=== PATIENT | female | born 1940 | race Caucasian/White ===

== ENCOUNTER 2020-11-06 17:42 | Emergency (ER) | payer MEDICARE ==
[2020-11-06 18:04] VITALS: O2SAT 98
[2020-11-06 18:07] LABS: Absolute Neutrophil Ct (ANC) 6.57 (1.4-6.9); BASOPHIL % 0.3 % (0.0-0.4); Basophil (Absolute #) 0.03 (0-0.4); Eosinophil % 2.4 % (0.00-5.0); Eosinophil (Absolute #) 0.24 (0-0.5); Hematocrit 33.9 % (35-47); Hemoglobin 10.8 gm/dl (12.0-16.0); Lymphocyte (Absolute #) 2.25 (1.0-4.6); Lymphocytes % 22.8 % (24.0-44.0); Mean Cell Volume 97.4 fl (78-100); Mean Corpuscular Hgb Concent. 31.9 g/dl (32-36); Mean Platelet Volume 11.4 fl (7.5-11.0); Monocyte (Absolute #) 0.79 (0.0-1.3); Neutrophil % 66.5 % (36.0-66.0); Platelet Count 186 K/mm3 (150-450); Red Blood Count 3.48 M/mm3 (4.1-5.4); Red Cell Distribution Width 14.3 % (11.5-14.0); White Blood Count 9.9 K/mm3 (4.0-10.5)
--- NOTE | 2020-11-06 18:22 | ERPHSYRPT ---
- History of Present Illness Source: patient Exam Limitations: no limitations Patient Subjective Stated Complaint: tachycardia Triage Nursing Assessment: pt to ED c/o tachycardia and GUEVARA on Thursday night, sx have all since gone away. pt denies GUEVARA or any CP now. heart sounds clear, lungs clear and equal bilaterally. Physician History: 79 yo wf w tachycardia 2 days ago whivh has resolved. Pt has a h/o tachycardia for which she sees a radiology scheduler who placed her on a BB w improvement. Pt denies chest pain/dyspnea/cough/fever/N/V/D/melena/hematochezia. Timing/Duration: day(s) (2 days ago) Activities at Onset: rest Quality: other (Heart raqcing) Chest Pain Radiation: no radiation Severity of Pain-Max: none Severity of Pain-Current: none Modifying Factors: Improves With: nothing Nitro Today/Relief: no nitro taken today Aspirin Treatment Today: no aspirin today Associated Symptoms: No nausea, No vomiting, No abdominal pain, No shortness of breath, No heartburn, No diaphoresis, No cough, No chills, No chest pain, No fever, No headaches, No loss of appetite, No malaise, No rash, No syncope, No seizure Prior Chest Pain/Cardiac Workup: no prior chest pain Allergies/Adverse Reactions: levofloxacin [From Levaquin] Allergy (Severe, Verified 12/06/19 14:24) Swelling of Face Home Medications: Cetirizine HCl [Zyrtec] 10 mg PO DAILY 02/01/15 [History] Enalapril Maleate 5 mg [Vasotec 5 MG] 5 mg PO DAILY 02/01/15 [History] Escitalopram Oxalate 10 mg [Lexapro 10 MG] 5 mg PO DAILY 02/01/15 [History] Fluticasone Propionate [Flonase NASAL] 16 gm NS DAILY 02/01/15 [History] Hydrochlorothiazide 25 mg [hydroDIURIL 25 MG] 12.5 mg PO DAILY 02/01/15 [History] Montelukast Sodium [Singulair] 10 mg PO DAILY 02/01/15 [History] Metoprolol Succinate 25 mg PO DAILY 11/06/20 [History] Hx Tetanus, Diphtheria Vaccination/Date Given: No Hx Influenza Vaccination/Date Given: No Hx Pneumococcal Vaccination/Date Given: No Immunizations Up to Date: No Travel Risk - International Travel Have you traveled outside of the country in past 3 weeks: No - Coronavirus Screening Are you exhibiting any of the following symptoms?: No Close contact with a COVID-19 positive Pt in past 14-21 Days: No - Vaccine Status Have you recieved a Covid-19 vaccination: No - Review of Systems Constitutional: No Symptoms Eyes: No Symptoms Ears, Nose, & Throat: No Symptoms Respiratory: No Symptoms Cardiac: No Symptoms, Palpitations Abdominal/Gastrointestinal: No Symptoms Genitourinary Symptoms: No Symptoms Musculoskeletal: No Symptoms Skin: No Symptoms Neurological: No Symptoms Psychological: No Symptoms Endocrine: No Symptoms Hematologic/Lymphatic: No Symptoms Immunological/Allergic: No Symptoms - Past Medical History Pertinent Past Medical History: Yes Neurological History: No Pertinent History ENT History: Cataracts, Other Cardiac History: Arrhythmia, Hypertension GI Medical History: Diverticulitis, Polyps Psycho-Social History: Depression Other Medical History: tachycardia - Past Surgical History Past Surgical History: Yes Female Surgical History: Tubal Ligation Other Surgical History: COLONOSCOPY, POLYP REMOVAL - Social History Smoking Status: Never smoker Exposure to second hand smoke: No Drug Use: none Patient Lives Alone: No Significant Family History: no pertinent family hx - Nursing Vital Signs Nursing Vital Signs: Initial Vital Signs Temperature 98.7 F 11/06/20 17:47 Pulse Rate 66 11/06/20 17:47 Respiratory Rate 16 11/06/20 17:47 Blood Pressure 136/64 11/06/20 17:47 O2 Sat by Pulse Oximetry 98 11/06/20 17:47 Pain Scale Pain Intensity 0 - Physical Exam General Appearance: no apparent distress Eye Exam: PERRL/EOMI, eyes nml inspection Ears, Nose, Throat Exam: normal ENT inspection, TMs normal, pharynx normal, mo ist mucous membranes Neck Exam: normal inspection, non-tender, supple, No meningismus, No mass, No Brudzinski, No Kernig's Respiratory Exam: normal breath sounds, crackles/rales (Rales bases L>R) Cardiovascular Exam: regular rate/rhythm, murmur (2/6 FRANCES/PAC's on monitor) Gastrointestinal/Abdomen Exam: soft, normal bowel sounds, No tenderness Back Exam: normal inspection, normal range of motion Extremity Exam: normal inspection, normal range of motion, pelvis stable Neurologic Exam: alert, oriented x 3, cooperative, 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, normal mood/affect, nml cerebellar function, nml station & gait, sensation nml, No motor deficits, No sensory deficit Skin Exam: normal color, warm, dry Lymphatic Exam: No adenopathy SpO2 Interpretation: normal SpO2: 98 O2 Delivery: Room Air - Course Nursing assessment & vital signs reviewed: Yes EKG Interpreted by Me: RATE (NSR/PAC's/RBBB/Prolonged QTc/Non-specific ST changes/EKG #2 NSR/PAC's/RBBB/prolonged QTc) - Radiology Exams Chest X-ray Interpretation: Interpreted by me (NAD) Ordered Tests: Active Orders 24 hr Category Date Time Status EKG-ER Only STAT Care 11/06/20 17:52 Completed EKG-ER Only STAT Care 11/06/20 19:08 Completed CHEST 1 VIEW (PORTABLE) Stat Exams 11/06/20 17:53 Taken CBC W DIFF Stat Lab 11/06/20 18:00 Completed CMP Stat Lab 11/06/20 18:00 Completed MAGNESIUM Stat Lab 11/06/20 18:00 Completed PROTIME WITH INR Stat Lab 11/06/20 18:00 Completed PTT Stat Lab 11/06/20 18:00 Completed TROPONIN Q3H Lab 11/06/20 18:00 Completed Lab/Rad Data: Laboratory Result Diagrams 11/06/20 18:00 11/06/20 18:00 Laboratory Results 11/06/20 11/06/20 11/06/20 Range/Units 18:00 18:00 18:00 WBC (4.0-10.5) K/mm3 RBC (4.1-5.4) M/mm3 Hgb (12.0-16.0) gm/dl Hct (35-47) % MCV (78-100) fl MCH (26-32) pg MCHC (32-36) g/dl RDW (11.5-14.0) % Plt Count (150-450) K/mm3 MPV (7.5-11.0) fl Gran % (36.0-66.0) % Eos # (Auto) (0-0.5) Absolute Lymphs (auto) (1.0-4.6) Absolute Monos (auto) (0.0-1.3) Lymphocytes % (24.0-44.0) % Monocytes % (0.0-12.0) % Eosinophils % (0.00-5.0) % Basophils % (0.0-0.4) % Absolute Granulocytes (1.4-6.9) Basophils # (0-0.4) PT 11.6 (9.95-12.35) SECONDS INR 1.03 (0.8-3.0) APTT 27.9 (25.3-37.0) SECONDS Sodium 141 (137-145) mmol/L Potassium 4.2 (3.5-5.1) mmol/L Chloride 105 (98-107) mmol/L Carbon Dioxide 26 (22-30) mmol/L Anion Gap 14.5 (5-15) MEQ/L BUN 27 H (7-17) mg/dL Creatinine 1.21 H (0.52-1.04) mg/dL Estimated GFR 45.4 ML/MIN Glucose 134 H (74-106) mg/dL Calcium 9.4 (8.4-10.2) mg/dL Magnesium 1.8 (1.6-2.3) mg/dL Total Bilirubin 0.30 (0.2-1.3) mg/dL AST 31 (14-36) U/L ALT 17 (0-35) U/L Alkaline Phosphatase 47 (38-126) U/L Troponin I < 0.012 (0.000-0.034) ng/mL Serum Total Protein 7.2 (6.3-8.2) g/dL Albumin 4.1 (3.5-5.0) g/dL 11/06/20 Range/Units 18:00 WBC 9.9 (4.0-10.5) K/mm3 RBC 3.48 L (4.1-5.4) M/mm3 Hgb 10.8 L (12.0-16.0) gm/dl Hct 33.9 L (35-47) % MCV 97.4 (78-100) fl MCH 31.0 (26-32) pg MCHC 31.9 L (32-36) g/dl RDW 14.3 H (11.5-14.0) % Plt Count 186 (150-450) K/mm3 MPV 11.4 H (7.5-11.0) fl Gran % 66.5 H (36.0-66.0) % Eos # (Auto) 0.24 (0-0.5) Absolute Lymphs (auto) 2.25 (1.0-4.6) Absolute Monos (auto) 0.79 (0.0-1.3) Lymphocytes % 22.8 L (24.0-44.0) % Monocytes % 8.0 (0.0-12.0) % Eosinophils % 2.4 (0.00-5.0) % Basophils % 0.3 (0.0-0.4) % Absolute Granulocytes 6.57 (1.4-6.9) Basophils # 0.03 (0-0.4) PT (9.95-12.35) SECONDS INR (0.8-3.0) APTT (25.3-37.0) SECONDS Sodium (137-145) mmol/L Potassium (3.5-5.1) mmol/L Chloride (98-107) mmol/L Carbon Dioxide (22-30) mmol/L Anion Gap (5-15) MEQ/L BUN (7-17) mg/dL Creatinine (0.52-1.04) mg/dL Estimated GFR ML/MIN Glucose (74-106) mg/dL Calcium (8.4-10.2) mg/dL Magnesium (1.6-2.3) mg/dL Total Bilirubin (0.2-1.3) mg/dL AST (14-36) U/L ALT (0-35) U/L Alkaline Phosphatase (38-126) U/L Troponin I (0.000-0.034) ng/mL Serum Total Protein (6.3-8.2) g/dL Albumin (3.5-5.0) g/dL - Progress Air Movement: good Progress Note: 11/06/20 20:52 Pt w frequent PAC's wo any malignant arrythmias in ER. No chest pain or dyspnea in ER. Counseled pt/family regarding: lab results, diagnosis, need for follow-up, rad results - Departure Departure Disposition: Home Clinical Impression: Heart palpitations Condition: Stable Critical Care Time: No Referrals: SANDIE LINDSAY, [Primary Care Provider] - Instructions: Tachycardia (DC) Additional Instructions: Follow up with Dr. Candelario in 1-2 days Return to ER for elevated heart rate/Chest pain/Shortness of breath
[2020-11-06 18:35] LABS: INR 1.03 (0.8-3.0); PROTIME 11.6 SECONDS (9.95-12.35)
[2020-11-06 18:37] LABS: PTT 27.9 SECONDS (25.3-37.0)
[2020-11-06 18:40] LABS: ALBUMIN 4.1 g/dL (3.5-5.0); ANION GAP 14.5 MEQ/L (5-15); BILIRUBIN,TOTAL 0.3 mg/dL (0.2-1.3); Calcium 9.4 mg/dL (8.4-10.2); Creatinine 1 1.21 mg/dL (0.52-1.04); EST GLOMERULAR FILTRATION RATE 45.4 ML/MIN; MAGNESIUM 1.8 mg/dL (1.6-2.3); Potassium 4.2 mmol/L (3.5-5.1); Total Protein 7.2 g/dL (6.3-8.2)
[2020-11-06 19:27] VITALS: BP 122/74; PULSE 70
--- NOTE | 2020-11-07 08:46 | XRAY ---
Indication: Chest heaviness and tachycardia. Comparison: September 09, 2018. Portable chest remains clear. Heart is not enlarged. Bony thorax intact again with mild osteopenia and degenerative changes. No new/acute findings.
== END 2020-11-06 19:29 | disposition home or self-care (01) ==
LOC: ED 17:42
DX: R00.2 Palpitations (principal)
CPT/HCPCS: 36000; 36415; 71045; 80053; 83735; 84484; 85025; 85610; 85730; 93005; 99284

== ENCOUNTER 2021-11-28 22:18 | Emergency (ER) | payer MEDICARE ==
--- NOTE | 2021-11-28 22:30 | ERPHSYRPT ---
- History of Present Illness Time Seen by Provider: 11/28/21 22:20 Source: patient, EMS Exam Limitations: no limitations Physician History: 80 years old female presented to the ER with chief complaint of fall and head injury. Patient reports she was holding a crockpot, while coming downstairs missed a step and fell backward hitting her head against the edge of step without loss of consciousness breath she started having headache and mild dizziness. Denies injury anywhere else. Denies any numbness tingling or focal weakness. No visual symptoms or difficulty speech. Denies any chest pain palpitations or shortness of breath before or after the fall Occurred: just prior to arrival Severity: moderate Head Injury Location: occipital, parietal Method of Injury: fell Loss of Consciousness: no loss of consciousness Associated Symptoms: headaches Allergies/Adverse Reactions: levofloxacin [From Levaquin] Allergy (Severe, Verified 12/06/19 14:24) Swelling of Face Home Medications: Cetirizine HCl [Zyrtec] 10 mg PO DAILY 02/01/15 [History] Enalapril Maleate 5 mg [Vasotec 5 MG] 5 mg PO DAILY 02/01/15 [History] Escitalopram Oxalate 10 mg [Lexapro 10 MG] 5 mg PO DAILY 02/01/15 [History] Fluticasone Propionate [Flonase NASAL] 16 gm NS DAILY 02/01/15 [History] Hydrochlorothiazide 25 mg [hydroDIURIL 25 MG] 12.5 mg PO DAILY 02/01/15 [History] Montelukast Sodium [Singulair] 10 mg PO DAILY 02/01/15 [History] Metoprolol Succinate 25 mg PO DAILY 11/06/20 [History] Hx Tetanus, Diphtheria Vaccination/Date Given: No Hx Influenza Vaccination/Date Given: No Hx Pneumococcal Vaccination/Date Given: No Travel Risk - Vaccine Status Have you recieved a Covid-19 vaccination: No - Review of Systems Constitutional: No Symptoms Eyes: No Symptoms Ears, Nose, & Throat: No Symptoms Respiratory: No Symptoms Cardiac: No Symptoms Abdominal/Gastrointestinal: No Symptoms Genitourinary Symptoms: No Symptoms Musculoskeletal: Fall Skin: No Symptoms Neurological: Headache Psychological: No Symptoms Endocrine: No Symptoms Hematologic/Lymphatic: No Symptoms Immunological/Allergic: No Symptoms - Past Medical History Pertinent Past Medical History: Yes Neurological History: No Pertinent History ENT History: Cataracts, Other Cardiac History: Arrhythmia, Hypertension GI Medical History: Diverticulitis, Polyps Psycho-Social History: Depression Other Medical History: tachycardia - Past Surgical History Past Surgical History: Yes Female Surgical History: Tubal Ligation Other Surgical History: COLONOSCOPY, POLYP REMOVAL - Social History Smoking Status: Never smoker Exposure to second hand smoke: No Drug Use: none Patient Lives Alone: No Significant Family History: no pertinent family hx - Nursing Vital Signs Nursing Vital Signs: Initial Vital Signs Temperature 98.1 F 11/28/21 22:25 Pulse Rate 53 L 11/28/21 22:25 Respiratory Rate 16 11/28/21 22:25 Blood Pressure 146/60 11/28/21 22:25 O2 Sat by Pulse Oximetry 98 11/28/21 22:25 Pain Scale Pain Intensity 0 - Louise Coma Score Best Eye Response (Louise): (4) open spontaneously Best Verbal Response (Bon): (5) oriented Best Motor Response (Bon): (6) obeys commands Louise Total: 15 - Physical Exam General Appearance: no apparent distress, alert Head Injury: contusions (left post parietal area 3x2 cm), No lacerations, No raccoon eyes Eye Exam: bilateral eye: normal inspection, PERRL, EOMI ENT Exam: airway nml, No evidence of ENT injury, No dental injury Neck Exam: supple, trachea midline, full range of motion, normal alignment, normal inspection Cardiovascular/Respiratory Exam: chest non-tender, normal breath sounds, regular rate/rhythm Gastrointestinal/Abdominal Exam: soft Back Exam: normal inspection, normal range of motion Extremity Exam: non-tender, normal range of motion Mental Status Exam: alert, oriented x 3, cooperative certified nuclear medicine technologist Exam: normal hearing, normal speech, PERRL Coordination/Gait Exam: normal finger to nose, normal cerebellar function Motor/Sensory Exam: no motor deficit, no sensory deficit DTR Exam: bicep (R): 2+, bicep (L): 2+, knee (R): 2+, knee (L): 2+ Skin Exam: normal color SpO2 Interpretation: normal SpO2: 95 O2 Delivery: Room Air Ordered Tests: Active Orders 24 hr Category Date Time Status CERVICAL SPINE WO CONTRAST [CT] Stat Exams 11/28/21 22:58 Taken HEAD WITHOUT CONTRAST [CT] Stat Exams 11/28/21 22:52 Taken - Progress Progress: improved Progress Note: 11/28/21 23:25 80 years old is evaluated for mechanical fall. She is offered pain medication which she refused. CT head and cervical spine negative except for left parietal hematoma. Nonfocal neuro exam throughout stay in the ER. No injury anywhere else. No other exam findings, stable for discharge with symptomatic treatment and outpatient follow-up. Discussed signs symptoms of worsening/head injury needing return to ER which she seems understanding. Counseled pt/family regarding: diagnosis, need for follow-up, rad results - Departure Departure Disposition: Home Clinical Impression: Fall Contusion of scalp Qualifiers: Encounter type: initial encounter Qualified Code(s): S00.03XA - Contusion of scalp, initial encounter Condition: Stable Critical Care Time: No Referrals: SANDIE LINDSAY, [Primary Care Provider] - Follow up/PCP as directed (1-2 days for re valuation ) Instructions: Concussion, Adult (DC), Head Injury Observation (DC) Additional Instructions: Take Tylenol as needed for pain. Intermittent ice application. Stay with responsible person for next 24 to 48 hours with frequent neurochecks. Follow head injury instructions and return to ER for any worsening.
[2021-11-28 23:22] VITALS: BP 124/81; PULSE 50; O2SAT 95
--- NOTE | 2021-11-29 08:56 | XRAY ---
Indication: Posterior head pain/hematoma following fall. Multiple contiguous axial images obtained through the head without contrast. Comparison: February 01, 2015. There is now age-appropriate global atrophy with minimal periventricular degenerative micro-ischemia bilaterally. No acute intracranial hemorrhage, abnormal extra-axial fluid collection, or mass effect. Fourth ventricle is midline without hydrocephalus. New small high left parietal scalp hematoma. Bony calvarium intact again with incidental hyperostosis frontalis interna. Paranasal sinuses and mastoid air cells are clear. Impression: New left parietal scalp hematoma. No underlying fracture or acute intracranial abnormalities. Normal aging brain including atrophy and degenerative micro-ischemia. Comment: Preliminary interpretation made by [facility]. No critical discrepancy.
--- NOTE | 2021-11-29 08:58 | XRAY ---
Indication: Posterior head pain/hematoma following fall. Multiple contiguous axial images obtained through the cervical spine. Sagittal and coronal reformatted images obtained. Comparison: February 01, 2015. Axial images demonstrates osteopenia, mild/moderate C4-C7 degenerative endplate spurring, and mild atlantoaxial degenerative changes. No acute fracture, suspicious bony lesions, or spinal canal stenosis. Sagittal and coronal reformatted images again demonstrates minimal lordotic reversal, positional versus paraspinal spasm. Stable C4-C7 disc space narrowing again greatest at C5-C6. No acute compression fracture, subluxation, or jumped facet. Normal appearing cradle cervical junction. Visualized noncontrasted soft tissues including lung apices are unremarkable. Impression: 1. Stable lordotic reversal, positional versus paraspinal spasm. 2. Continue negative acute fracture/subluxation. 3. Again incidental osteopenia and multilevel degenerative changes. Comment: Preliminary interpretation made by C. No critical discrepancy.
== END 2021-11-28 23:37 | disposition home or self-care (01) ==
LOC: ED 22:18
DX: S00.03XA Contusion of scalp, initial encounter (principal); W10.9XXA Fall (on) (from) unspecified stairs and steps, initial encounter; R51.9 Headache, unspecified; I10 Essential (primary) hypertension; Z79.899 Other long term (current) drug therapy
CPT/HCPCS: 70450; 72125; 99284